=== PATIENT | female | born 1960 | race Caucasian/White ===

== ENCOUNTER → 2024-10-16 | Outpatient (REF) | payer OTHER | LOC: MAMMO 10:28 | PROVIDERS: ATTEND Obstetrics & Gynecology | DX: Z12.31 Encounter for screening mammogram for malignant neoplasm of breast (principal) | CPT/HCPCS: 77067 ==

== ENCOUNTER → 2024-11-15 | Outpatient (REF) | payer OTHER | LOC: MAMMO 10:35 | PROVIDERS: ATTEND Obstetrics & Gynecology | DX: R92.323 Mammographic fibroglandular density, bilateral breasts (principal); N64.89 Other specified disorders of breast | CPT/HCPCS: 77066 ==